=== PATIENT | female | born 1960 | race Caucasian/White ===

== ENCOUNTER 2017-05-23 07:07 | Emergency (ER) | payer OTHER ==
[~2017-05-23] VITALS: Ht 170.2 cm; Wt 76.8 kg
[2017-05-23 08:11] LABS: HEMOGLOBIN 14.1 G/DL (11.9-15.5); MCH 28.5 PG (29.0-34.0); MCHC 33.6 G/DL (30.0-36.0); MCV 84.8 FL (83-99); PLATELET COUNT 261 K/uL (156-360); RBC DIS.WIDTH-CV 12.5 % (11.8-14.6); RED BLOOD COUNT 4.95 M/uL (3.80-5.20); WHITE BLOOD COUNT 9.5 K/uL (4.1-10.2)
[2017-05-23 08:30] LABS: ALBUMIN 4.4 g/dL (3.2-4.8)
[2017-05-23 08:31] LABS: CHLORIDE 109 mEq/L (99-109); POTASSIUM 4.2 mEq/L (3.7-5.4); SODIUM 139 mEq/L (136-147)
[2017-05-23 08:33] LABS: GLUCOSE 214 mg/dL (70-99)
[2017-05-23 08:35] LABS: TOTAL BILIRUBIN 0.5 mg/dL (0.0-1.0); TROP-I INTERPRETATION NEGATIVE; TROPONIN-I < 0.01 ng/mL (0.0-0.30)
[2017-05-23 08:36] LABS: ALKALINE PHOSPHATASE 55 IU/L (3-129)
[2017-05-23 08:37] LABS: CREATININE 0.8 mg/dL (0.6-1.3); GFR ESTIMATE (CALCULATED) > 59 mL/min/
[2017-05-23 08:38] LABS: UREA NITROGEN (BUN) 12 mg/dL (9-23)
[2017-05-23 08:39] LABS: AST (GOT) 10 IU/L (2-34)
[2017-05-23 08:40] LABS: ALT (GPT) 14 IU/L (3-49)
[2017-05-23 08:51] LABS: TOTAL PROTEIN 6.7 g/dL (6.4-8.3)
[2017-05-23 10:20] LABS: APPEARANCE CLEAR ((CLEAR)); BILIRUBIN NEGATIVE; BLOOD NEGATIVE; COLOR YELLOW ((YELLOW)); GLUCOSE (STRIP) >=500; KETONES NEGATIVE; LEUKOCYTES NEGATIVE; NITRITE NEGATIVE; PROTEIN (STRIP) NEGATIVE; SPECIFIC GRAVITY 1.018 (1.000-1.030); UROBILINOGEN 0.2 MG/DL (0.2-1.0)
[2017-05-23] MEDS ORDERED: AMOXICILLIN875 MG PO (10:52)
[2017-05-23] MEDS ORDERED: ZOFRAN ODT4 MG PO (10:52)
[2017-05-23] MEDS ORDERED: FLONASE16 G1 BOTH NARES (10:52)
[2017-05-23 11:12] VITALS: BP 115/71
== END 2017-05-23 11:16 | disposition home or self-care (01) ==
LOC: EME 07:07
PROVIDERS: Nurse Practitioner Family
DX: H66.91 Otitis media, unspecified, right ear (principal); E11.65 Type 2 diabetes mellitus with hyperglycemia; R11.2 Nausea with vomiting, unspecified; R42 Dizziness and giddiness
CPT/HCPCS: 70450; 80053; 81003; 82948; 83605; 84484; 85027; 93005; 99281; 99284

== ENCOUNTER 2017-05-24 10:12 | Emergency (ER) | payer OTHER ==
[~2017-05-24] VITALS: Ht 170.2 cm; Wt 76.8 kg
[~2017-05-24 10:12] MED LIST: AMOXICILLIN875 MG PO; FLONASE16 G1 BOTH NARES; ZOFRAN ODT4 MG PO
[2017-05-24 11:19] LABS: HEMATOCRIT 40.4 % (36.0-46.0); HEMOGLOBIN 13.6 G/DL (11.9-15.5); MCH 28.5 PG (29.0-34.0); MCHC 33.7 G/DL (30.0-36.0); MCV 84.5 FL (83-99); PLATELET COUNT 305 K/uL (156-360); RBC DIS.WIDTH-CV 12.5 % (11.8-14.6); RBC DIS.WIDTH-SD 38.1 % (39-53); RED BLOOD COUNT 4.78 M/uL (3.80-5.20); WHITE BLOOD COUNT 9.7 K/uL (4.1-10.2)
[2017-05-24 11:25] LABS: ALBUMIN 4.5 g/dL (3.2-4.8); CHLORIDE 109 mEq/L (99-109); POTASSIUM 3.9 mEq/L (3.7-5.4); SODIUM 142 mEq/L (136-147)
[2017-05-24 11:27] LABS: GLUCOSE 167 mg/dL (70-99); TOTAL PROTEIN 7.3 g/dL (6.4-8.3)
[2017-05-24 11:29] LABS: TOTAL BILIRUBIN 0.5 mg/dL (0.0-1.0)
[2017-05-24 11:31] LABS: ALKALINE PHOSPHATASE 57 IU/L (3-129); CREATININE 0.7 mg/dL (0.6-1.3); GFR ESTIMATE (CALCULATED) > 59 mL/min/
[2017-05-24 11:32] LABS: UREA NITROGEN (BUN) 10 mg/dL (9-23)
[2017-05-24 11:33] LABS: AST (GOT) 10 IU/L (2-34)
[2017-05-24 11:34] LABS: ALT (GPT) 14 IU/L (3-49); LIPASE 13 U/L (1.0-51.0)
[2017-05-24 15:41] LABS: APPEARANCE CLEAR ((CLEAR)); BILIRUBIN NEGATIVE; BLOOD NEGATIVE; COLOR YELLOW ((YELLOW)); GLUCOSE (STRIP) 150; KETONES 80; LEUKOCYTES NEGATIVE; NITRITE NEGATIVE; PROTEIN (STRIP) 30; UCUL ADDED? NO; UROBILINOGEN 0.2 MG/DL (0.2-1.0)
[2017-05-24 16:44] VITALS: BP 125/69
== END 2017-05-24 16:46 | disposition home or self-care (01) ==
LOC: EME 10:12
PROVIDERS: Physician Assistant
DX: R11.2 Nausea with vomiting, unspecified (principal); R42 Dizziness and giddiness; E11.9 Type 2 diabetes mellitus without complications; Z79.84 Long term (current) use of oral hypoglycemic drugs
CPT/HCPCS: 80053; 81003; 82803; 82948; 83690; 85027; 99281; 99284; J1200; J2405; J7030